=== PATIENT | female | born 1985 | race Caucasian/White ===

== ENCOUNTER 2020-12-23 17:17 | Emergency (ER) | payer MEDICAID ==
[~2020-12-23] VITALS: Ht 175.3 cm; Wt 78.9 kg
[2020-12-23 17:19] VITALS: BP 134/70
--- NOTE | 2020-12-23 17:42 | NUR ---
BREAK RN: PT REPORTS SHE IS 8 WEEKS AND IS BLEEDING WITH VOMITING. PT WAS DISCHARGED FROM [facility] THIS MORNING. VS STABLE. CALL LIGHT IN PLACE WILL CONTINUE TO MONITRO WHILE PRIMARY RN IS ON BREAK.
--- NOTE | 2020-12-23 18:01 | NUR ---
BREAK RN: REPORT GIVEN TO ANNA WILKINS
--- NOTE | 2020-12-23 18:02 | NUR ---
PT SITTING ON GURNEY. FIDGITY AND MOVING AROUND GURNEY. SIGNIFICANT OTHER AT BEDSIDE. MD IN FOR ASSESSMENT.
[2020-12-23] MEDS ORDERED: ONDANSETRON 2MG/ML, 2ML ONE (18:13)
--- NOTE | 2020-12-23 18:24 | NUR ---
PER ROB, OK TO CHANGE ZOFRAN ORDER AND GIVE IM. PIZZA COOK PER JAN. PT RESTING COMFORTABLY ON GURNEY. RECORDS REQUESTED FROM J[facility]U.
[2020-12-23] MEDS ORDERED: ONDANSETRON 2MG/ML, 2ML IVPush ONE (18:30)
[2020-12-23] MEDS ORDERED: SODIUM CHLORIDE FLUSH 10ML SYR IVF ONE (18:30)
[2020-12-23] MEDS ORDERED: ONDANSETRON 2MG/ML, 2ML IM ONE (18:30)
--- NOTE | 2020-12-23 19:15 | NUR ---
PT STATES SHE DOESN'T WANT TO WAIT FOR [facility] RECORDS. PT IS READY TO GO HOME. NOTIFIED. PT TBDC.
--- NOTE | 2020-12-23 19:31 | NUR ---
THIS RN WENT INTO ROOM WITH DC PAPERWORK. STRONG SMELL OF MARIJUANA PRESENT THAT WAS NOT THERE BEFORE. PT AND SO STATE THEY HAVE NOT SMOKED AND DON'T HAVE ANY IN THEIR POCKETS.
== END 2020-12-23 19:32 | disposition home or self-care (01) ==
LOC: ED 17:20
DX: O21.0 Mild hyperemesis gravidarum (principal); O46.91 Antepartum hemorrhage, unspecified, first trimester; Z3A.01 Less than 8 weeks gestation of pregnancy
CPT/HCPCS: 99281